=== PATIENT | female | born 1960 | race African-American/Black ===

== ENCOUNTER 2016-11-21 20:11 | Emergency (ER) | payer MEDICAID ==
[~2016-11-21] VITALS: Ht 167.6 cm; Wt 89.8 kg
[~2016-11-21 20:11] MED LIST: MECLIZINE HCL25 MG ORAL; NKM
[2016-11-21 20:45] VITALS: BP 163/94
[2016-11-21] MEDS ORDERED: IBUPROFEN600 MG ORAL (20:57)
--- NOTE | 2016-11-24 07:04 | Emergency Room Report ---
History of Present Illness General Chief Complaint: Pain Source: Patient Present Illness HPI 56-year-old female presents ED complaining of right wrist pain. States she's had the pain for the last 2 weeks. Sharp. 8 out of 10, radiating through the fingers. Denies trauma. Denies any other injuries. States that she has had this similar problem in the past and was told she carpal tunnel syndrome. Was treated with conservative measures and states her symptoms resolved. No other aggravating relieving factors. Denies any other associated symptom Allergies: Coded Allergies: No Known Allergies (Unverified , 10/14/12) Patient History Past Medical History: none Past Surgical History: none Pertinent Family History: none Social History: Denies: alcohol use, drug use, smoking Last Menstrual Period: Menopause Now: No Immunizations: UTD Reviewed Nursing Documentation: PMH: Agreed, PSxH: Agreed Review of Systems All Other Systems: negative except mentioned in HPI Physical Exam Vital Signs Date Time Temp Pulse Resp B/P Pulse Ox O2 Delivery O2 Flow Rate FiO2 11/21/16 20:27 98.2 84 16 163/94 100 Room Air Sp02 EP Interpretation: reviewed, normal General Appearance: no apparent distress, alert, GCS 15, non-toxic Head: normocephalic Eyes: bilateral eye PERRL, bilateral eye normal inspection ENT: normal ENT inspection Neck: normal inspection Respiratory: normal inspection Cardiovascular #1: normal inspection Gastrointestinal: normal inspection Rectal: deferred Genitourinary: no CVA tenderness Musculoskeletal: normal range of motion, tender - reproducible TTP with median nerve compression R wrist Neurologic: alert, oriented x3, responsive, motor strength/tone normal, speech normal, sensory deficit - 1st thru 3rd fingers R hand tingling Psychiatric: normal inspection Skin: normal inspection Lymphatic: normal inspection Procedures Splinting Splinting : Consent: Verbal Pre-Made Type: velcro Splint: wrist Pre-Proc Neuro Vasc Exam: normal Post-Proc Neuro Vasc Exam: normal Patient Tolerated: Well Complications: None Medical Decision Making Diagnostic Impression: Primary Impression: Carpal tunnel syndrome Qualified Codes: G56.01 - Carpal tunnel syndrome, right upper limb Additional Impression: Pain ER Course Hospital Course 56-year-old female presents to ED complaining of R wrist pain no trauma Differential diagnoses include: Fracture, dislocation, sprain, contusion, bursitis Clinical course Patient placed on stretcher. After initial history, physical exam reveals an middle-aged female in no acute distress. There is pain in the right wrist with tingling sensation noted in the first through third digits. Pain is worsened with median nerve compression. Consistent with carpal tunnel syndrome Given pain medication, placed in wrist splint Diagnosis - carpal tunnel syndrome stable and discharged to home with prescription for motrin. Followup with PMD. Return to ED if symptoms recur or worsen Last Vital Signs Date Time Temp Pulse Resp B/P Pulse Ox O2 Delivery O2 Flow Rate FiO2 11/21/16 20:45 98.2 16 163/94 100 Room Air 11/21/16 20:45 88 Status: improved Disposition: HOME, SELF-CARE Condition: Stable Scripts Ibuprofen* (MOTRIN*) 600 Mg Tablet 600 MG ORAL Q8H Y for For Pain, #30 TAB 0 Refills Prov: OH AYALA M.D. 11/21/16 Referrals: NON PHYSICIAN (PCP) Patient Instructions: Carpal Tunnel Syndrome, [id number] OH AYALA M.D. Nov 24, 2016 07:04
== END 2016-11-21 20:49 | disposition home or self-care (01) ==
LOC: EMR 20:39
DX: G56.01 Carpal tunnel syndrome, right upper limb (principal); R52 Pain, unspecified
CPT/HCPCS: 99282